=== PATIENT | male | born 1970 | race Caucasian/White ===

== ENCOUNTER 2022-08-20 23:18 | Inpatient (IN) | payer MEDICAID ==
[~2022-08-20] VITALS: Ht 182.9 cm; Wt 95.3 kg
[2022-08-21] MEDS ORDERED: PANTOPRAZOLE SODIUM 40 MG VIAL IV ONE (00:15)
[2022-08-21] MEDS ORDERED: ONDANSETRON 4 MG/2 ML VIAL IV ONE (00:15)
[2022-08-21] MEDS ORDERED: IV NORMAL SALINE 1000 ML BAG IV ONE (00:15)
[2022-08-21 00:30] LABS: MEAN CORPUSCULAR VOLUME 95.3 fL (73.0-96.2); PLATELET COUNT (AUTO) 98 K/uL (152-348)
[2022-08-21 00:48] LABS: BILIRUBIN,DIRECT 0.4 mg/dL (0.0-0.2); BILIRUBIN,TOTAL 0.8 mg/dL (0.2-1.0); CREATININE 3.2 mg/dL (0.6-1.3); POTASSIUM 3.8 mmol/L (3.5-5.1); TOTAL PROTEIN, SERUM 6.8 g/dL (6.4-8.2)
[2022-08-21 01:00] LABS: HEMATOCRIT 19.6 % (36.7-47.1)
[2022-08-21 01:19] LABS: BAND % (MANUAL) 1 % (0-10); LYMPHOCYTES % (MANUAL) 30 % (20-40); MONOCYTES % (MANUAL) 16 % (2-10); NEUTROPHILS % (MANUAL) 50 % (42-75)
[2022-08-21 01:20] LABS: BASOPHILS % (MANUAL) 1 % (0-2); EOSINOPHILS % (MANUAL) 2 % (0-8)
[2022-08-21] MEDS ORDERED: HYDROMORPHONE 1 MG/1 ML DISP.SYRIN IV ONE (01:45)
[2022-08-21] MEDS ORDERED: PANTOPRAZOLE SODIUM IV 40 MG in IV DEXTROSE 5% 100 ML IV ONE (02:15)
[2022-08-21] MEDS ORDERED: PIPERACILLIN SODIUM/TAZOBACTAM 3.375 G in IV DEXTROSE 5% 50 ML IV ONE (03:15)
[2022-08-21] MEDS ORDERED: ONDANSETRON 4 MG/2 ML VIAL ONE (03:17)
[2022-08-21] MEDS ORDERED: PANTOPRAZOLE SODIUM 40 MG VIAL ONE ×2 (03:17→03:18)
[2022-08-21] MEDS ORDERED: PIPERACILLIN/TAZOBACTAM/D5W 50 ML IV ONE (03:17)
[2022-08-21] MEDS ORDERED: HYDROMORPHONE 1 MG/1 ML DISP.SYRIN ONE (03:18)
[2022-08-21 03:36] LABS: *BILIRUBIN,URIN NEGATIVE (NEGATIVE); *BLOOD, URINE 1+ (NEGATIVE); *COLOR,URINE YELLOW (YELLOW); *KETONES,URINE NEGATIVE (NEGATIVE); *UROBILINOGEN,URINE 0.2 E.U./dl (NORMAL); LEUKOCYTE ESTERASE ,URINE 1+ (NEGATIVE); NITRITE, URINE NEGATIVE (NEGATIVE)
[2022-08-21 03:41] LABS: *CLARITY,URINE SLIGHTLY CLOUDY (CLEAR); UGLUCOSE 2+ (NEGATIVE)
[2022-08-21] MEDS ORDERED: PANTOPRAZOLE SODIUM IV 80 MG in IV DEXTROSE 5% 500 ML IV SCH (04:15)
[2022-08-21] MEDS ORDERED: OCTREOTIDE ACETATE DRIP 1,250 MCG in IV NORMAL SALINE 250 ML IV ONE (04:15)
[2022-08-21] MEDS ORDERED: MORPHINE SULFATE 2 MG/1 ML DISP.SYRIN IV PRN (04:15)
[2022-08-21] MEDS ORDERED: ONDANSETRON 4 MG/2 ML VIAL IV PRN (04:15)
[2022-08-21] MEDS ORDERED: IV NS 1000 ML 1,000 ML IV PRN (04:15)
[2022-08-21] MEDS ORDERED: ACETAMINOPHEN 325 MG TABLET PO PRN (04:15)
[2022-08-21] MEDS ORDERED: DEXTROSE 50% 50 ML DISP.SYRIN IV PRN (04:15)
[2022-08-21] MEDS ORDERED: REMEDY ESSENTIAL ZINC PASTE 113 GM TP PRN (04:15)
[2022-08-21] MEDS ORDERED: MAGNESIUM HYDROXIDE 30 ML LIQUID UDC PO PRN (04:15)
[2022-08-21] MEDS ORDERED: FOLIC ACID 1 MG in IV DEXTROSE 5% 50 ML IV SCH (04:30)
[2022-08-21] MEDS ORDERED: THIAMINE HCL INJ 100 MG in IV DEXTROSE 5% 50 ML IV SCH (04:30)
[2022-08-21 05:05] LABS: BACTERIA,URINE FEW /HPF (NONE SEEN)
[2022-08-21 05:06] LABS: SQUAMOUS EPITHELIAL CELL,UR NONE SEEN /HPF (NONE SEEN)
[2022-08-21] MEDS ORDERED: PIPERACILLIN SODIUM/TAZOBACTAM 3.375 G in IV DEXTROSE 5% 50 ML IV SCH (06:00)
[2022-08-21 07:10] LABS: MEAN CORPUSCULAR HEMOGLOBIN 33.1 uug (23.8-33.4); PLATELET COUNT (AUTO) 82 K/uL (152-348)
[2022-08-21 07:12] LABS: MEAN CORPUSCULAR VOLUME 94.7 fL (73.0-96.2)
[2022-08-21 07:23] LABS: BILIRUBIN,TOTAL 0.6 mg/dL (0.2-1.0); CREATININE 2.9 mg/dL (0.6-1.3); MAGNESIUM 1.3 mg/dL (1.8-2.4); PHOSPHOROUS 3.9 mg/dL (2.5-4.9); POTASSIUM 4.9 mmol/L (3.5-5.1); TOTAL PROTEIN, SERUM 6.5 g/dL (6.4-8.2)
[2022-08-21 07:24] LABS: HEMATOCRIT 20.3 % (36.7-47.1)
[2022-08-21 07:31] LABS: THYROID STIMULATING HORMONE 2.032 mIU/mL (0.358-3.740)
--- NOTE | 2022-08-21 08:06 | NUR ---
called and gave report to 3rd floor nurse MELINA Astudillo. pt being admitted to [facility] for GI bleed, pancreatitis, accepting MD is Susie. pt transfered via wheelchair in stable condition and placed in bed, is resting comfortably and Wilda at Bedside. pt has all belongings with him.
--- NOTE | 2022-08-21 08:10 | NUR ---
Pt brought up from ER for GI bleed with current hgb 7.1 hct 20.3. Pt is a/o x 4, Occitan speaking. No complaint of pain or SOB at this time. Call light within reach, comfort measures provided. Pt is placed NPO for Nuclear medicine scan of gallbladder study. Opiates will also be held per .
[2022-08-21 09:00] VITALS: BP 156/82
[2022-08-21] MEDS: BLOOD SUGAR DIAGNOSTIC 1 EACH STRIP VI SCH ×4 (10:15→20:00)
[2022-08-21] MEDS: INSULIN REGULAR, HUMAN 300 UNIT/3 ML VIAL SQ PRN ×2 (10:17→13:10)
[2022-08-21] MEDS: FOLIC ACID 1 MG in IV DEXTROSE 5% 50 ML IV SCH (11:00)
--- NOTE | 2022-08-21 11:09 | NUR ---
Pt taken for nuclear medicine gallbladder study. Consent in chart.
[2022-08-21] MEDS: THIAMINE HCL INJ 100 MG in IV DEXTROSE 5% 50 ML IV SCH (12:00)
[2022-08-21] MEDS: MAGNESIUM SULFATE/D5W 100 ML IV SCH ×2 (12:40→14:29)
[2022-08-21] MEDS: OCTREOTIDE ACETATE DRIP 500 MCG in IV NORMAL SALINE 99 ML IV SCH ×2 (12:42→23:07)
[2022-08-21] MEDS: PIPERACILLIN SODIUM/TAZOBACTAM 3.375 G in IV DEXTROSE 5% 100 ML IV SCH ×2 (12:53→20:00)
--- NOTE | 2022-08-21 13:33 | NUR ---
Per ER report, fast food shift supervisor registry nurse Catalina administered Folic acid, thiamine, and protonix in ER. Non admin for 1200 dose for that reason.
--- NOTE | 2022-08-21 13:35 | NUR ---
Social work consult was requested for a patient on medsurg for homeless resources and substance abuse resources. Patient is 51-year-old male admitted to the hospital for a GI bleed. Patient is alert and oriented X4. Patient presents with anxious mood and congruent affect. Patient states his primary adjuster electrical contacts is his friend, Ivanna Mina ([phone]). Patient states that he is currently living at [facility] at [address] [address] and he states he will return there at discharge. SW offered the patient resources for local shelters for [facility] [address] [place] [address] ([phone]), [facility] [address] [address] ([phone]) and [facility] [address] [facility] [address]. Homeless waiver was signed and was placed in the chart. Patient was appreciative of the resources. Patient states that he has a history of alcohol abuse. There is no toxicology report and patient states he drank one beer the day before being admitted to the hospital. Patient states he goes to alcoholics anonymous meetings at [facility] and [facility] [address]. SATYA provided the patient with resources to [address] [address] ([phone]), [facility] [address] [facility] [address] ([phone]), and [address] [address] ([phone]). Patient appeared unmotivated for treatment. SW placed the resources in the patients chart. Patient denies a history of psychiatric diagnosis. Patient denies suicidal or homicidal ideation. Patients plan for discharge is to go back to [facility] at [address] [facility] [address] and SW will provide the patient with a TAP card at discharge.
[2022-08-21] MEDS: PANTOPRAZOLE SODIUM 40 MG VIAL IV SCH ×2 (14:37→21:34)
[2022-08-21 16:00] VITALS: BP 136/81
--- NOTE | 2022-08-21 16:00 | NUR ---
pT BLOOD GLUCOSE DECREASED TO 48, D50 ADMINISTERED, ORANGE JUICE ADMINISTERED PER MD, WILL CONTINUE TO MONITOR AND REASSESS IN 30 MINUTES. PT CONTINUES TO BE ALERT AND ORIENTED X 4, REPORTS FEELING SWEATY. PLACED ON FULL LIQUID DIET PER MD
--- NOTE | 2022-08-21 16:30 | NUR ---
Reassessed pt blood glucose, resulted as 141. Pt did not report feeling ill or precipitating. pt is a/o x 4, no complaints of pain at this time.
[2022-08-21 20:00] VITALS: BP 161/81
[2022-08-22 04:00] VITALS: BP 124/64
[2022-08-22] MEDS: BLOOD SUGAR DIAGNOSTIC 1 EACH STRIP VI SCH ×7 (04:00→23:25)
[2022-08-22] MEDS: PIPERACILLIN SODIUM/TAZOBACTAM 3.375 G in IV DEXTROSE 5% 100 ML IV SCH ×3 (05:07→20:15)
[2022-08-22] MEDS ORDERED: MORPHINE SULFATE 2 MG/1 ML DISP.SYRIN IV PRN (06:40)
[2022-08-22 07:18] LABS: HEMATOCRIT 22.6 % (36.7-47.1); MEAN CORPUSCULAR HEMOGLOBIN 33.9 uug (23.8-33.4); MEAN CORPUSCULAR VOLUME 95.8 fL (73.0-96.2); PLATELET COUNT (AUTO) 91 K/uL (152-348)
[2022-08-22 07:50] LABS: BILIRUBIN,TOTAL 1.3 mg/dL (0.2-1.0); CREATININE 2.4 mg/dL (0.6-1.3); MAGNESIUM 1.7 mg/dL (1.8-2.4); PHOSPHOROUS 3.1 mg/dL (2.5-4.9); POTASSIUM 4.3 mmol/L (3.5-5.1); TOTAL PROTEIN, SERUM 6.8 g/dL (6.4-8.2)
[2022-08-22] MEDS: PANTOPRAZOLE SODIUM 40 MG VIAL IV SCH ×2 (08:52→20:16)
[2022-08-22] MEDS: OCTREOTIDE ACETATE DRIP 500 MCG in IV NORMAL SALINE 99 ML IV SCH ×2 (08:52→18:52)
[2022-08-22] MEDS: INSULIN REGULAR, HUMAN 300 UNIT/3 ML VIAL SQ PRN ×5 (08:52→23:25)
[2022-08-22 08:58] LABS: EOSINOPHILS % (MANUAL) 1 % (0-8); LYMPHOCYTES % (MANUAL) 13 % (20-40); MONOCYTES % (MANUAL) 7 % (2-10); NEUTROPHILS % (MANUAL) 79 % (42-75)
[2022-08-22 09:54] VITALS: BP 153/75
[2022-08-22] MEDS: FOLIC ACID 1 MG in IV DEXTROSE 5% 50 ML IV SCH (10:01)
[2022-08-22] MEDS ORDERED: MAGNESIUM SULFATE/D5W 100 ML IV SCH (11:00)
[2022-08-22] MEDS: THIAMINE HCL INJ 100 MG in IV DEXTROSE 5% 50 ML IV SCH (11:39)
[2022-08-22 12:00] VITALS: BP 169/85
--- NOTE | 2022-08-22 12:28 | NUR ---
Pt. is alert and oriented x4. No C/O pain at this time. BS checked and it was 445 and pt. was asymptomatic. Reported to STRATEGIC ACCOUNT DIRECTOR Pascale and no new order received. will keep monitoring the resident.
[2022-08-22 16:00] VITALS: BP 153/54
--- NOTE | 2022-08-22 19:30 | NUR ---
Received patient lying in bed. AAOx4. In no acute distress. Denies any pain or SOB. IV site on left AC intact and patent. Sandostatin infusing at this time. Needs assessed and attended to. Safety measure initiated and call light within reached.
[2022-08-22 20:00] VITALS: BP 118/76
[2022-08-23] MEDS: PIPERACILLIN SODIUM/TAZOBACTAM 3.375 G in IV DEXTROSE 5% 100 ML IV SCH ×3 (03:30→20:29)
[2022-08-23] MEDS: BLOOD SUGAR DIAGNOSTIC 1 EACH STRIP VI SCH ×6 (03:35→21:03)
[2022-08-23] MEDS: INSULIN REGULAR, HUMAN 300 UNIT/3 ML VIAL SQ PRN ×4 (03:36→21:05)
[2022-08-23 04:00] VITALS: BP 126/81
[2022-08-23] MEDS: OCTREOTIDE ACETATE DRIP 500 MCG in IV NORMAL SALINE 99 ML IV SCH (04:55)
[2022-08-23 08:15] LABS: CREATININE 2.6 mg/dL (0.6-1.3); MAGNESIUM 1.6 mg/dL (1.8-2.4); PHOSPHOROUS 2.6 mg/dL (2.5-4.9); POTASSIUM 4.6 mmol/L (3.5-5.1); TOTAL PROTEIN, SERUM 6.9 g/dL (6.4-8.2)
[2022-08-23 08:19] LABS: HEMATOCRIT 23.2 % (36.7-47.1); MEAN CORPUSCULAR HEMOGLOBIN 33.3 uug (23.8-33.4); MEAN CORPUSCULAR VOLUME 96.7 fL (73.0-96.2); PLATELET COUNT (AUTO) 96 K/uL (152-348)
[2022-08-23] MEDS: PANTOPRAZOLE SODIUM 40 MG VIAL IV SCH ×2 (09:30→20:51)
[2022-08-23] MEDS: MAGNESIUM SULFATE/D5W 100 ML IV SCH ×2 (09:33→10:50)
[2022-08-23] MEDS: THIAMINE HCL 100 MG TABLET PO SCH (10:24)
[2022-08-23] MEDS: FOLIC ACID 1 MG TABLET PO SCH (10:24)
[2022-08-23] MEDS: IV NS 1000 ML 1,000 ML IV PRN (11:14)
[2022-08-23 12:00] VITALS: BP 155/75
[2022-08-23 13:13] LABS: EOSINOPHILS % (MANUAL) 3 % (0-8); LYMPHOCYTES % (MANUAL) 28 % (20-40); MONOCYTES % (MANUAL) 4 % (2-10); NEUTROPHILS % (MANUAL) 65 % (42-75)
[2022-08-23 16:07] VITALS: BP 135/69
--- NOTE | 2022-08-23 16:37 | NUR ---
blood sugar 68, administered orange juice and dinner tray, will reassess.
[2022-08-23] MEDS ORDERED: DEXTROSE 50% 50 ML DISP.SYRIN IV PRN (17:00)
[2022-08-23] MEDS ORDERED: BLOOD SUGAR DIAGNOSTIC 1 EACH STRIP VI SCH (17:00)
--- NOTE | 2022-08-23 18:08 | NUR ---
Repeat blood sugar 206. no insulin coverage given due to previous low level. notified, accuchecks changed from Q4H to ACHS
[2022-08-23 20:00] VITALS: BP 163/84
[2022-08-24] MEDS: PIPERACILLIN SODIUM/TAZOBACTAM 3.375 G in IV DEXTROSE 5% 100 ML IV SCH ×3 (03:06→20:01)
[2022-08-24 04:41] VITALS: BP 154/80
[2022-08-24] MEDS: BLOOD SUGAR DIAGNOSTIC 1 EACH STRIP VI SCH ×4 (05:59→20:20)
[2022-08-24 07:34] LABS: HEMATOCRIT 22.7 % (36.7-47.1); MEAN CORPUSCULAR HEMOGLOBIN 33.6 uug (23.8-33.4); MEAN CORPUSCULAR VOLUME 96.2 fL (73.0-96.2); PLATELET COUNT (AUTO) 95 K/uL (152-348)
[2022-08-24 07:42] LABS: NEUTROPHILS % (MANUAL) 0 % (42-75)
[2022-08-24 07:48] LABS: CREATININE 2.9 mg/dL (0.6-1.3); MAGNESIUM 1.6 mg/dL (1.8-2.4); POTASSIUM 4.3 mmol/L (3.5-5.1); TOTAL PROTEIN, SERUM 6.8 g/dL (6.4-8.2)
[2022-08-24] MEDS: PANTOPRAZOLE SODIUM 40 MG VIAL IV SCH ×2 (08:58→20:01)
[2022-08-24] MEDS: THIAMINE HCL 100 MG TABLET PO SCH (08:58)
[2022-08-24] MEDS: FOLIC ACID 1 MG TABLET PO SCH (08:58)
[2022-08-24] MEDS: INSULIN REGULAR, HUMAN 300 UNIT/3 ML VIAL SQ PRN ×4 (09:01→20:20)
[2022-08-24] MEDS ORDERED: MAGNESIUM SULFATE/D5W 100 ML IV SCH (09:15)
[2022-08-24 09:20] VITALS: BP 159/83
[2022-08-24 11:19] VITALS: BP 150/69
[2022-08-24] MEDS: IV NS 1000 ML 1,000 ML IV PRN (11:49)
[2022-08-24 15:13] VITALS: BP 144/81
[2022-08-24] MEDS: INSULIN GLARGINE,HUM 300 UNITS/3 ML CARTRIDGE SQ SCH (20:19)
[2022-08-24 21:09] VITALS: BP 163/79
[2022-08-25] MEDS: IV NS 1000 ML 1,000 ML IV PRN (01:00)
[2022-08-25 04:35] VITALS: BP 152/79
[2022-08-25] MEDS: PIPERACILLIN SODIUM/TAZOBACTAM 3.375 G in IV DEXTROSE 5% 100 ML IV SCH ×2 (04:36→12:43)
[2022-08-25 06:48] LABS: HEMATOCRIT 22.2 % (36.7-47.1); MEAN CORPUSCULAR HEMOGLOBIN 33.5 uug (23.8-33.4); MEAN CORPUSCULAR VOLUME 95.6 fL (73.0-96.2); PLATELET COUNT (AUTO) 88 K/uL (152-348)
[2022-08-25] MEDS: BLOOD SUGAR DIAGNOSTIC 1 EACH STRIP VI SCH ×3 (07:03→16:30)
[2022-08-25 07:08] LABS: BILIRUBIN,TOTAL 0.8 mg/dL (0.2-1.0); CREATININE 2.6 mg/dL (0.6-1.3); MAGNESIUM 1.7 mg/dL (1.8-2.4); PHOSPHOROUS 3.5 mg/dL (2.5-4.9); POTASSIUM 3.7 mmol/L (3.5-5.1); TOTAL PROTEIN, SERUM 6.8 g/dL (6.4-8.2)
[2022-08-25] MEDS: INSULIN REGULAR, HUMAN 300 UNIT/3 ML VIAL SQ PRN ×3 (08:34→12:37)
[2022-08-25] MEDS: FOLIC ACID 1 MG TABLET PO SCH (08:35)
[2022-08-25] MEDS: PANTOPRAZOLE SODIUM 40 MG VIAL IV SCH (08:35)
[2022-08-25] MEDS: THIAMINE HCL 100 MG TABLET PO SCH (08:36)
[2022-08-25] MEDS: INSULIN GLARGINE,HUM 300 UNITS/3 ML CARTRIDGE SQ SCH (08:46)
[2022-08-25] MEDS ORDERED: AMLODIPINE 5 MG TABLET PO SCH (09:00)
[2022-08-25 11:59] VITALS: BP 157/86
[2022-08-25] MEDS: MAGNESIUM SULFATE/D5W 100 ML IV SCH ×2 (12:30→12:42)
[2022-08-25] MEDS ORDERED: AMLO-212 PO (13:22)
[2022-08-25] MEDS ORDERED: THIA100T13 PO (13:22)
[2022-08-25] MEDS ORDERED: FOLI1TAB94 PO (13:22)
[2022-08-25] MEDS ORDERED: AMOX-430 PO (13:22)
[2022-08-25] MEDS ORDERED: Insulin Glargine,Hum SQ (13:22)
[2022-08-25] MEDS ORDERED: PANT40TA2 PO (13:22)
[2022-08-25] MEDS ORDERED: SITA50TA PO (13:22)
[2022-08-25 16:48] VITALS: BP 144/70
--- NOTE | 2022-08-25 18:38 | NUR ---
Pt. discharged to care home to the [facility]. Pt. noted alert and oriented x4. Discharge instruction provided and verbalized understanding. pt. instructed to visit his PCP and director of supply chain at [facility] in 1 week. Pt. TAB/bus pass provided before discharge. He was having good balance upon discharge. IV line removed and pt. stated that he has all his belonging. Instructed pt. to follow up regarding his vaccine with PCP since PT. refused vaccines.
== END 2022-08-25 18:40 | disposition home or self-care (01) | DRG 282 ==
LOC: ER 23:18 → TELE3 08-21 07:27 → MEDSURG3 08-22 09:35
PROVIDERS: ADMIT Nurse Practitioner Family; ATTEND Nurse Practitioner Acute Care
DX: K85.90 Acute pancreatitis without necrosis or infection, unspecified (principal); N17.0 Acute kidney failure with tubular necrosis; D61.818 Other pancytopenia; K76.6 Portal hypertension; E87.1 Hypo-osmolality and hyponatremia; D50.0 Iron deficiency anemia secondary to blood loss (chronic); E11.22 Type 2 diabetes mellitus with diabetic chronic kidney disease; K92.2 Gastrointestinal hemorrhage, unspecified; K74.60 Unspecified cirrhosis of liver; M19.90 Unspecified osteoarthritis, unspecified site; Z59.01 Sheltered homelessness; N18.9 Chronic kidney disease, unspecified; K76.0 Fatty (change of) liver, not elsewhere classified; Z79.4 Long term (current) use of insulin; E86.1 Hypovolemia; E11.65 Type 2 diabetes mellitus with hyperglycemia; I12.9 Hypertensive chronic kidney disease with stage 1 through stage 4 chronic kidney disease, or unspecified chronic kidney disease; Z20.822 Contact with and (suspected) exposure to COVID-19
CPT/HCPCS: 36415; 70030-TC; 73610; 78445; 83690; 83735; 84100; 84443; 85025; 85730; 86850; 86900; 86901; 86920; A4663; A9537; C9113; G0378; J1170; J1815; J2354; J2405; J2543; J3411; J3475; J3490; J7040